=== PATIENT | male | born 1955 | race Caucasian/White ===

== ENCOUNTER 2016-12-03 07:31 | Emergency (ER) | payer BC ==
[2016-12-03 07:39] VITALS: BP 148/102
[2016-12-03] MEDS ORDERED: PROPARACAINE 0.5% OPHTH DROPS 15 ML ONE (08:07)
--- NOTE | 2016-12-03 08:20 | ED Physician Documentation ---
PD HPI OPHTHO - Stated complaint Stated Complaint: FOREIGN OBJ IN EYE - Chief complaint Chief Complaint: Heent - History obtained from History obtained from: Patient - History of Present Illness Timing - onset: Today Timing - details: Still present Location: Left Associated symptoms: FB sensation Contributing factors: Wears glasses, Other (Mowing grass yesterday.) Similar symptoms before: Has not had sx before - Additional information Additional information: The patient is a 61-year-old male who awoke this morning with a foreign body sensation in his left eye. It feels to him like it is under the upper lid. He denies any recent traumatic injury, but he was mowing grass yesterday and believes it is possible something flew into his eye. He denies any change in his visual acuity. He wears prescription glasses. He denies history of similar symptoms in the past. Review of Systems Constitutional: denies: Fever Eyes: reports: Irritation. denies: Decreased vision, Discharge Nose: denies: Congestion Respiratory: denies: Dyspnea GI: denies: Nausea Skin: denies: Rash Neurologic: denies: Headache PD PAST MEDICAL HISTORY - Past Medical History Cardiovascular: None Respiratory: None Endocrine/Autoimmune: None - Present Medications Home Medications: Ambulatory Orders Medication Instructions Recorded Confirmed Esomeprazole Magnesium [Nexium] 20 mg PO DAILY 12/03/16 12/03/16 - Allergies Allergies/Adverse Reactions: Allergies Allergy/AdvReac Type Severity Reaction Status Date / Time No Known Drug Allergies Allergy Verified 12/03/16 07:38 - Living Situation Living Situation: reports: With spouse/s.o. - Social History Does the pt smoke?: No Smoking Status: Never smoker Does the pt have substance abuse?: No PD ED PE NORMAL - Vitals Vital signs reviewed: Yes (initially hypertensive.) - General General: Alert and oriented X 3, Well developed/nourished - HEENT HEENT: Atraumatic, PERRL, EOMI, Other (Conjunctiva are clear. Fluorescein stain and slit lamp exam of the left eye reveals no fluorescein uptake. The left upper lid was everted revealing a small linear foreign body, consistent with grass fragment. This was easily removed with a cotton tip swab.) - Respiratory Respiratory: No respiratory distress PD ED PE EXPANDED - Eyes Eyes: PERRL, Normal accommodation, EOMI, Left eye, Eyelid embedded FB, Nl conjunctiva/sclera. No: Exudate, Fluorescein uptake Results - Vitals Vitals: Oxygen O2 Source Room air PD MEDICAL DECISION MAKING - ED course Complexity details: considered differential, d/w patient, d/w family ED course: The patient's presentation is significant for left upper eyelid foreign body, which was easily removed using a cotton-tipped swab. This completely relieved the patient's symptoms. I discussed with him and his potentially worrisome signs or symptoms that should prompt reevaluation in the emergency department. Departure - Departure Disposition: 01 Home, Self Care Clinical Impression: Foreign body in eye Qualifiers: Encounter type: initial encounter Laterality: left Qualified Code(s): T15.92XA - Foreign body on external eye, part unspecified, left eye, initial encounter Condition: Stable Instructions: ED Eye Particle Conjunctiva FB Rslv Follow-Up: Chaka Nielson MD [Primary Care Provider] - Comments: Follow-up with your primary physician, or return to the emergency department, if you develop recurrent discomfort in your eye, or otherwise worsening symptoms. Discharge Date/Time: 12/03/16 08:25
== END 2016-12-03 08:25 | disposition home or self-care (01) ==
LOC: ED 07:31
DX: T15.92XA Foreign body on external eye, part unspecified, left eye, initial encounter (principal); X58.XXXA Exposure to other specified factors, initial encounter
CPT/HCPCS: 65205; 99282; 99283; J3490